=== PATIENT | male | born 1935 | race Caucasian/White ===

== ENCOUNTER 2018-12-18 19:11 | Emergency (ER) | payer MEDICARE, BC ==
[~2018-12-18] VITALS: Ht 180.3 cm; Wt 91.8 kg
[2018-12-18 19:18] VITALS: TEMP 98.4
[2018-12-18] MEDS ORDERED: SYNTHROID 0.10.15 MG PO (20:48)
[2018-12-18] MEDS ORDERED: THE MEDICINE S200 M2 PO (20:49)
[2018-12-18] MEDS ORDERED: MULTI VITAMINS1 TAB PO (20:49)
[2018-12-18] MEDS ORDERED: NORCO 325 MG-51 TAB PO ×2 (20:50→21:11)
[2018-12-18] MEDS ORDERED: PRAVACHOL 20MG20 MG PO (20:50)
[2018-12-18] MEDS ORDERED: TOFRANIL 25MG T25 MG PO (20:51)
[2018-12-18] MEDS ORDERED: PRADAXA 150MG150 MG PO (20:51)
[2018-12-18] MEDS ORDERED: TOPROL XL 25MG25 MG PO (20:51)
[2018-12-18] MEDS ORDERED: VALIUM 2MG T2 MG/TAB PO (21:11)
[2018-12-18 21:40] VITALS: BP 158/73; PULSE 95
== END 2018-12-18 21:42 | disposition home or self-care (01) ==
LOC: COL.ER 19:11
DX: M43.6 Torticollis (principal); I10 Essential (primary) hypertension; M19.90 Unspecified osteoarthritis, unspecified site
CPT/HCPCS: J1200; J2270

== ENCOUNTER 2018-12-20 10:06 | Observation (INO) | payer MEDICARE, BC ==
[~2018-12-20] VITALS: Wt 89.5 kg
[~2018-12-20 10:06] MED LIST: MULTI VITAMINS1 TAB PO; NORCO 325 MG-51 TAB PO; PRADAXA 150MG150 MG PO; PRAVACHOL 20MG20 MG PO; SYNTHROID 0.10.15 MG PO; THE MEDICINE S200 M2 PO; TOFRANIL 25MG T25 MG PO; TOPROL XL 25MG25 MG PO; VALIUM 2MG T2 MG/TAB PO
[2018-12-20 11:26] LABS: BASO % 0.2 % (0.0-2.0); EOS # 0.1 (0.0-0.7); EOS % 1.3 % (0-4.0); GRAN # 8.1 (1.4-6.5); GRAN % 77.9 % (42.2-75.2); HEMATOCRIT 44.9 % (42.0-52.0); HEMOGLOBIN 14.9 g/dl (13.5-18.0); LYMPH # 1.2 (1.2-3.4); LYMPH % 11.3 % (20.0-51.0); MEAN CELL VOLUME 92 fl (80.0-100.0); MEAN CORPUSCULAR HEMOGLOBIN 31 pg (27.0-31.0); MEAN CORPUSCULAR HGB CONC 33 g/dl (33.0-37.0); MEAN PLATELET VOLUME 10.2 fl (7.4-10.4); MONO # 0.9 (0.1-0.6); PLATELET COUNT 135 K/mm3 (130-400); RED BLOOD COUNT 4.87 M/mm3 (4.20-5.60); REDCELL DISTRIBUTION WIDTH-CV 13.9 % (11.5-14.5)
[2018-12-20 11:33] LABS: PARTIAL THROMBOPLASTIN TIME 59.2 SECONDS (26.0-37.0)
[2018-12-20 11:40] LABS: ALANINE AMINOTRANSFERASE < 6 U/L (21-72); ALBUMIN 3.8 gm/dL (3.5-5.0); ALKALINE PHOSPHATASE 66 U/L (50-136); ANION GAP 12 mmol/L (7-16); AST,SGOT 17 U/L (15-37); BILIRUBIN,TOTAL 0.7 mg/dL (0.0-1.0); BLOOD UREA NITROGEN 19 mg/dL (9-20); CALCIUM 8.8 mg/dL (8.4-10.2); CARBON DIOXIDE 24 mmol/L (22-30); CHLORIDE 103 mmol/L (98-107); CREATININE, serum 0.99 (0.66-1.25); GLUCOSE 137 mg/dL (74-106); POTASSIUM 3.8 mmol/L (3.4-5.0); SODIUM 138 mmol/L (137-145); TOTAL PROTEIN 7.4 gm/dL (6.4-8.2)
[2018-12-20 11:45] LABS: INR 1.4 (0.8-3.0); PROTHROMBIN TIME 16.4 SECONDS (9.7-12.8)
[2018-12-20 11:49] LABS: TROPONIN-I 0.024 ng/mL (0.000-0.035)
[2018-12-20 11:51] LABS: ERYTHROCYTE SEDIMENTATION RATE 19 mm/hr (0-30)
[2018-12-20 11:52] LABS: C-REACTIVE PROTEIN 13.3 mg/dL (0.0-0.9)
[2018-12-20 15:30] VITALS: BP 168/90; PULSE 78; TEMP 97.4
--- NOTE | 2018-12-20 18:01 | NUR ---
Pt up to unit from ER this afternoon. Pt has neck pain and restricted ROM. Assessment completed. Pt has bilat hearing aides in place. Pt rates pain at rest at 4/10. 10/10 with movement. Pt given dilaudid in the ER and pt is still drowsy. Pt alert and oriented but drowsy and confused conversation at times. Pt SBA d/t pain medication. Pt has fall precautions and call light in reach. Pt IV in RW intact and free of complications. Pt has family at bedside and denies needs at this time.
[2018-12-20 18:20] VITALS: BP 168/90; PULSE 78; TEMP 97.4
--- NOTE | 2018-12-20 18:42 | NUR ---
updated on pt AFIB rhythm on telemetry. Dr. Valdez gave order to set upper parameter HR to 130. Pt family updated. Pt has call light in reach.
[2018-12-20 19:23] VITALS: BP 123/76; PULSE 89; TEMP 98.2
--- NOTE | 2018-12-20 19:26 | NUR ---
Pt report given to Yolanda OLSON.
--- NOTE | 2018-12-20 19:55 | NUR ---
Shift assessment complete. Pt resting in bed, awake, a&o c occasional confused statements. Pt continued c/o neck pain, rated 2/10 at rest et 9/10 c even slight movement. PRN Dilaudid admin per pt request. Pt denies any other c/o. et da at bedside. IV patent. Tele in place, continued a-flutter. Pt denies further needs at this time. Call light in reach, bed alarm on. Will continue to monitor.
[2018-12-20 23:24] VITALS: BP 138/75; PULSE 101; TEMP 98.4
[2018-12-21 03:21] VITALS: BP 128/91; PULSE 96; TEMP 98.2
[2018-12-21 06:25] LABS: BASO % 0.2 % (0.0-2.0); EOS # 0.1 (0.0-0.7); EOS % 1.2 % (0-4.0); GRAN # 7.3 (1.4-6.5); GRAN % 70.4 % (42.2-75.2); HEMATOCRIT 47.4 % (42.0-52.0); HEMOGLOBIN 15.4 g/dl (13.5-18.0); LYMPH # 1.6 (1.2-3.4); LYMPH % 15.3 % (20.0-51.0); MEAN CELL VOLUME 93 fl (80.0-100.0); MEAN CORPUSCULAR HEMOGLOBIN 30 pg (27.0-31.0); MEAN CORPUSCULAR HGB CONC 33 g/dl (33.0-37.0); MEAN PLATELET VOLUME 10.9 fl (7.4-10.4); MONO # 1.3 (0.1-0.6); MONO % 12.6 % (1.7-9.3); PLATELET COUNT 152 K/mm3 (130-400); RED BLOOD COUNT 5.09 M/mm3 (4.20-5.60); REDCELL DISTRIBUTION WIDTH-CV 14.2 % (11.5-14.5)
[2018-12-21 06:32] LABS: CALCIUM 8.9 mg/dL (8.4-10.2); CREATININE, serum 1.12 (0.66-1.25)
[2018-12-21 07:03] LABS: TSH w REFLEX 3.73 uIU/mL (0.465-4.680)
[2018-12-21 07:32] VITALS: BP 126/90; PULSE 77; TEMP 97.4
--- NOTE | 2018-12-21 10:00 | NUR ---
Patient assessment complete. , daughter Amarilis, RN and granddaughter at bedside. Patient is A&O. Denies SOB, on 2L NC. Lung sounds CTA. Bowel sounds present. Heart RRR. Denies palpitations. Denies N/V. States a "little dizzine" when he sat on EOB earlier. Radial and pedal pulses strong bilaterally. C/O neck pain. PRN dilaudid administered prior to going down for MRI. Patient barely able to move neck or head. RFA IVF infusing, no complications. Denies other needs at this time.
[2018-12-21] MEDS ORDERED: SYNTHROID 0.0.025 MG PO (10:40)
--- NOTE | 2018-12-21 11:00 | NUR ---
Patient down for MRI by bed with WHITNEY Cm. Fluids unhooked and tele off.
--- NOTE | 2018-12-21 12:14 | NUR ---
Initial visit; Patient thanked Dragger for looking in on him and offering spiritual care.
--- NOTE | 2018-12-21 12:15 | NUR ---
Patient back from MRI. Patient VSS. Rating neck pain 02/10. Family back at bedside. Ordering lunch.
[2018-12-21 12:30] VITALS: BP 151/88; PULSE 95; TEMP 98.7
--- NOTE | 2018-12-21 15:02 | NUR ---
SW met with patient, patient's , and daughter about discharge planning. Patient is visiting from [place] but plans to stay with his daughter for atleast a week after he is discharged. Patient reports his PCP and preferred pharmacy are in [place]. Patient reports he does not use any home health services. Patient does use a CPAP at night but no other DME is reported. SW does not anticipate any discharge needs but will follow as needed.
--- NOTE | 2018-12-21 16:08 | NUR ---
Patient sitting in chair with family at bedside. Dilaudid PRN administered. Patient rating pain 6/10 or 8/10 if he moves his neck. Awaiting MRI results and possible discharge today. Patient walking with physical therapy at this time. No other needs at this time.
[2018-12-21] MEDS ORDERED: NORCO 325 MG-51 TAB PO (16:36)
[2018-12-21] MEDS ORDERED: FLEXERIL5 MG PO (16:39)
--- NOTE | 2018-12-21 17:42 | NUR ---
Patient discharged. Discharge instructions and education reviewed with patient and family. All questions answered. No further needs or questions. RFA IV discontinued. Catheter tip intact, no complications. No fluids infusing at time of removal. Escorted out via wheelchair by this nurse.
== END 2018-12-21 17:45 | disposition home or self-care (01) ==
LOC: COL.ER 10:06 → MEDICAL 12:57
PROVIDERS: Emergency Medicine; ADMIT Hospitalist
DX: M54.2 Cervicalgia (principal); I48.91 Unspecified atrial fibrillation; E03.9 Hypothyroidism, unspecified; E78.5 Hyperlipidemia, unspecified; I25.10 Atherosclerotic heart disease of native coronary artery without angina pectoris; R32 Unspecified urinary incontinence; Z90.79 Acquired absence of other genital organ(s); Z79.899 Other long term (current) drug therapy; M48.03 Spinal stenosis, cervicothoracic region
CPT/HCPCS: A9585; G0378; J1170; J2060; J2405; J7030

== ENCOUNTER 2021-05-01 12:16 | Emergency (ER) | payer MEDICARE ==
[~2021-05-01] VITALS: Ht 180.3 cm; Wt 89.1 kg
[~2021-05-01 12:16] MED LIST changes: +FLEXERIL5 MG PO; +SYNTHROID 0.0.025 MG PO
[2021-05-01 12:51] VITALS: TEMP 98.4
[2021-05-01 13:50] LABS: BASO % 0.2 % (0.0-2.0); EOS # 0.1 (0.0-0.7); EOS % 2.3 % (0-4.0); GRAN # 2.6 (1.4-6.5); GRAN % 54.2 % (42.2-75.2); HEMATOCRIT 42.5 % (42.0-52.0); HEMOGLOBIN 13.8 g/dl (13.5-18.0); LYMPH # 1.4 (1.2-3.4); LYMPH % 28.6 % (20.0-51.0); MEAN CELL VOLUME 93 fl (80.0-100.0); MEAN CORPUSCULAR HEMOGLOBIN 30 pg (27.0-31.0); MEAN CORPUSCULAR HGB CONC 33 g/dl (33.0-37.0); MEAN PLATELET VOLUME 10.4 fl (7.4-10.4); MONO # 0.7 (0.1-0.6); MONO % 14.5 % (1.7-9.3); PLATELET COUNT 131 K/mm3 (130-400); RED BLOOD COUNT 4.58 M/mm3 (4.20-5.60); REDCELL DISTRIBUTION WIDTH-CV 14.7 % (11.5-14.5)
[2021-05-01 14:06] LABS: ALBUMIN 3.2 gm/dL (3.4-4.8); BILIRUBIN,TOTAL 0.5 mg/dL (0.2-1.2); CALCIUM 8.4 mg/dL (8.4-10.2); CREATININE, serum 1.32 mg/dL (0.72-1.25); POTASSIUM 3.8 mmol/L (3.5-4.5); TOTAL PROTEIN 6.8 gm/dL (6.2-8.1)
[2021-05-01] MEDS ORDERED: ZOFRAN ODT4 MG PO (16:08)
[2021-05-01 16:20] VITALS: BP 113/65; PULSE 58
== END 2021-05-01 16:20 | disposition home or self-care (01) ==
LOC: COL.ER 12:16
PROVIDERS: Personal Emergency Response Attendant
DX: K56.7 Ileus, unspecified (principal); I25.10 Atherosclerotic heart disease of native coronary artery without angina pectoris; I48.91 Unspecified atrial fibrillation; Z90.49 Acquired absence of other specified parts of digestive tract; Z79.899 Other long term (current) drug therapy; Z79.01 Long term (current) use of anticoagulants
CPT/HCPCS: J2270; J2405; J7030; Q9967